=== PATIENT | female | born 1995 | race Caucasian/White ===

== ENCOUNTER 2020-08-01 18:14 | Emergency (ER) | payer OTHER, BC ==
[~2020-08-01] VITALS: Ht 165.1 cm; Wt 75.7 kg
--- NOTE | 2020-08-02 09:51 | EKG ---
[facility] [address] [facility] [place] [address] Signed Sinus tachycardia Otherwise normal ECG No previous ECGs available Confirmed by MODESTO BRADLEY MD ([id number]) on 08/02/2020 9:51:20 AM Electronically Signed By: MODESTO BRADLEY MD 08/02/20 0951 PATIENT NAME: AURORA MOTTA Electrocardiogram DATE OF : [birth year] PHYSICIAN: MODESTO BRADLEY MD REPORT #: [id number] REPORT IS CONFIDENTIAL AND NOT TO BE RELEASED WITHOUT AUTHORIZATION
== END 2020-08-01 21:46 | disposition home or self-care (01) ==
LOC: ED 18:14
DX: O99.891 Other specified diseases and conditions complicating pregnancy (principal); N85.8 Other specified noninflammatory disorders of uterus; Z88.2 Allergy status to sulfonamides; Z88.1 Allergy status to other antibiotic agents
CPT/HCPCS: 76801; 76817; 80053; 81001; 83690; 84702; 85025; 85379; 93005; 93010; 99285-25